=== PATIENT | male | born 1940 | race Caucasian/White ===

== ENCOUNTER → 2018-04-14 11:00 | Outpatient (CLI) | payer MEDICARE, OTHER, SELFPAY ==
--- NOTE | 2018-04-14 | DI.US.S_ITS ---
PROCEDURE: US SCROTUM INDICATIONS: TESTICULAR PAIN TECHNIQUE: Real-time scanning was performed of the scrotum and testicles, with image documentation. Color and pulse Doppler interrogation was performed of both testicles. COMPARISON: [facility], , TESTICLE IMAGING, 03/30/2016, 13:28. FINDINGS: Right: Testicle is normal in size at 3.5 x 2.4 x 2.6 cm, and homogenous in echotexture. Epididymis is normal in overall size and morphology. No hydrocele or varicoceles. Overlying scrotal skin is normal in thickness. On the inferior margin of the right testicle there is a heterogeneous cystic structure identified that measures approximately 1.7 x 1.4 x 1.3 cm which demonstrates low level internal echoes without vascularity. Left: Testicle is normal in size at 2.9 x 2.2 x 2.7 cm, and homogeneous in echotexture. Epididymis is normal in overall size and morphology. Incidental note is made of a dilated rete testes of the left testicle with small cystic foci evident. No hydrocele or varicoceles. Overlying scrotal skin is normal in thickness. Doppler: Color and pulse Doppler demonstrate normal and symmetric arterial flow in both testicles. Other: Targeted sonographic imaging of the left inguinal region demonstrates a small lymph node measuring up to 7 mm in short axis at the site of the patient's area of concern, which is of doubtful clinical significance. No obvious inguinal hernia is evident. IMPRESSION: 1. No testicular mass, evidence of testicular torsion, or epididymal orchitis. 2. Heterogeneous fluid collection on the inferior margin of the right scrotal sac may represent a partly loculated hydrocele versus epididymal cyst. Please correlate clinically to exclude superimposed infection. 3. The patient's area of concern correlates with a small benign appearing left inguinal lymph node. Dictated by: Dylan Marley M.D. on 04/14/2018 at 13:00 Approved by: Dylan Marley M.D. on 04/14/2018 at 13:04
== END ==
PROVIDERS: PCP Family Medicine; Visit Provider Urology
DX: N50.819 Testicular pain, unspecified (principal)
CPT/HCPCS: 76870

== ENCOUNTER 2018-11-01 16:14 | Emergency (ER) | payer MEDICARE, OTHER, SELFPAY ==
[2018-11-01 16:15] VITALS: BP 165/63; PULSE 82; RESP 18; TEMP 36.6; O2SAT 98
[2018-11-01 16:37] LABS: Add Manual Diff / Slide Review NO; Basophils Absolute Auto 100 /uL (0-100); Basophils Percent Auto 0.6 % (0-2); Eosinophils Absolute Auto 200 /uL (0-450); Eosinophils Percent Auto 1.7 % (2-4); Hematocrit 42.7 % (41-53); Hemoglobin 14.7 g/dL (13.5-17.5); Lymphocytes Absolute Auto 800 /uL (1100-4500); Lymphocytes Percent Auto 5.6 % (25-40); Mean Corpuscular HGB Conc 34.4 % (30-36); Mean Corpuscular Hemoglobin 32.5 PG (26-34); Mean Corpuscular Volume 94.3 fL (80-100); Monocytes Absolute Auto 700 /uL (0-900); Neutrophils Absolute Auto 11800 /uL (1500-7000); Neutrophils Percent Auto 87.1 % (50-75); Platelet Count 265 X10^3/uL (150-400); Red Blood Cell Count 4.53 X10^6/uL (4.5-5.9); Red Cell Distribution Width 14.1 % (11.6-14.8); White Blood Cell Count 13.5 X10^3/uL (4.5-11.0)
[2018-11-01] MEDS: ONDANSETRON 4 MG/2 ML INJ IV ×2 (16:40→19:16)
[2018-11-01 16:46] LABS: INR 1.1 (0.9-1.3); Prothrombin Time 12.8 SECONDS (10.1-12.7)
[2018-11-01 16:48] LABS: PTT Partial Thromboplastin Tim 29 SECONDS (26.4-36.2)
[2018-11-01 16:50] LABS: Alanine Aminotransferase 27 IU/L (21-72); Albumin 4.6 g/dL (3.5-5.0); Albumin Globulin Ratio 1.2 (1.0-2.8); Alkaline Phosphatase 61 U/L (38-126); Aspartate Aminotransferase 32 IU/L (17-59); BUN Creatinine Ratio 16.4 (6-22); Bilirubin Total 0.8 mg/dL (0.2-1.3); Blood Urea Nitrogen 18 mg/dL (9-20); Calcium 10.4 mg/dL (8.4-10.2); Carbon Dioxide 26 mmol/L (22-32); Chloride 102 mmol/L (98-107); Estimated Glomerular Filt Rate > 60.0 mL/min (>60); Globulin 3.8 g/dL (1.7-4.1); Glucose 124 mg/dL (80-110); Lipase 55 U/L (23-300); Potassium 4.6 mmol/L (3.4-5.1); Sodium 140 mmol/L (137-145); Total Protein 8.4 g/dL (6.3-8.2)
[2018-11-01 16:54] LABS: HEMOLYSIS 68 (0-50)
[2018-11-01 17:19] LABS: Bacteria Urine Occasional (0-1); Culture Indicated Urine Specimen Cultured; RBC Urine 5-10/HPF (0-5/HPF); Squamous Epithelial Cell Urine 0-1 /HPF (0-5/HPF); WBC Urine 5-10/HPF (0-5/HPF)
[2018-11-01 19:11] VITALS: BP 139/70; PULSE 72; RESP 18; TEMP 36.1; O2SAT 95
--- NOTE | 2018-11-01 20:37 | ED.ABDPAIN ---
HPI - Abdominal Pain General Chief Complaint: Abdominal Pain Stated Complaint: GUT PAIN Time Seen by Provider: 11/01/18 16:19 Source: patient Mode of arrival: ambulatory Limitations: no limitations History of Present Illness HPI narrative: Patient comes to the emergency department complaining of crampy abdominal pain that started today. He denies any diarrhea or constipation. No fevers. No chest pain or shortness of breath. No cough. No dysuria. No blood in his stools. No vomiting, but patient has been mildly nauseated. No other complaints at this time. Related Data Home Medications Medication Instructions Recorded Confirmed furosemide 20 mg PO DAILY #0 08/31/17 11/01/18 metoprolol succinate 100 mg PO QPM #0 08/31/17 11/01/18 Probiotic 1 cap PO BID 11/01/18 11/01/18 alprazolam 1 mg PO BEDTIME PRN 11/01/18 11/01/18 amlodipine 10 mg PO QAM 11/01/18 11/01/18 atorvastatin 20 mg PO QPM 11/01/18 11/01/18 fluticasone propionate 1 spray INTRANASAL DAILY 11/01/18 11/01/18 hydrocodone-acetaminophen 1 tab PO QAM 11/01/18 11/01/18 levofloxacin 750 mg PO [id number] 11/01/18 11/01/18 naloxone 1 spray INTRANASAL PRN PRN 11/01/18 11/01/18 sennosides-docusate sodium [Senna 1 tab PO BID 11/01/18 11/01/18 with Docusate Sodium] Previous Rx's Medication Instructions Recorded lidocaine [Lidoderm] 1 patch TOPICAL Q12H #1 box 12/02/16 ondansetron 4 mg PO Q6H PRN #14 tab 11/01/18 sulfamethoxazole-trimethoprim 1 tab PO Q12H #14 tab 11/01/18 [Bactrim DS] Allergies Allergy/AdvReac Type Severity Reaction Status Date / Time diphenhydramine AdvReac Intermediate tachycardia Unverified 08/18/17 11:56 [From BENADRYL] and heightened anxiety morphine [MORPHINE] AdvReac Intermediate confusion, Unverified 08/18/17 11:56 disorientation oxycodone [OXYCODONE] AdvReac Mild CAUSES Unverified 08/31/17 12:35 CONFUSION [id number] Allergy Unknown Uncoded 11/01/18 16:24 Review of Systems Constitutional Denies chills, Denies fever(s), Denies lethargy and Denies weakness Eyes Denies change in vision, Denies eye discharge, Denies irritation and Denies loss of vision ENT Ears, Nose, Mouth, and Throat: Denies change in voice, Denies neck pain and Denies sore throat Cardiovascular Denies chest pain, Denies irregular heart rhythm, Denies lightheadedness, Denies palpitations, Denies dyspnea, Denies dyspnea on exertion and Denies orthopnea Respiratory Denies cough, Denies dyspnea, Denies dyspnea on exertion and Denies wheezing Gastrointestinal Gastrointestinal: Reports abdominal pain, Denies change in bowel habits, Denies diarrhea, Denies nausea and Denies vomiting Genitourinary Denies hematuria, Denies flank pain, Denies urinary incontinence and Denies urinary urgency Musculoskeletal Denies neck pain Integumentary/Breasts Denies pruritus, Denies erythema, Denies rash and Denies wounds Neurologic Denies confusion, Denies loss of vision and Denies weakness Psychiatric Denies anxiety, Denies confusion, Denies depression, Denies homicidal ideation and Denies suicidal ideation Endocrine Denies palpitations Hematologic/Lymphatic Denies easy bruising Allergic/Immunologic Denies wheezing [facility] Medical History Hyperlipidemia (Acute) HTN (hypertension) (Acute) Surgical History No pertinent past surgical history (Acute) Social History Smoking Status: Former smoker Social History Smoking Status: Former smoker Exam Initial Vital Signs Initial Vital Signs: Vital Signs Temperature 97.9 F 11/01/18 16:15 Pulse Rate 82 11/01/18 16:15 Respiratory Rate 18 11/01/18 16:15 Blood Pressure 165/63 H 11/01/18 16:15 Pulse Oximetry 98 11/01/18 16:15 Const General: cooperative and well developed Nutritional Appearance: well nourished Orientation: alert, awake, oriented x3 and not confused HENMT Head: normocephalic and atraumatic Ears: external ears normal and TM's normal bilaterally Nose: external nose normal and No nasal discharge Face and sinus: sinuses nontender, face symmetric, no sinus tenderness and No dry mucous membranes Mouth: oral mucosae normal and moist mucous membranes Teeth and gingiva: dentition normal Throat: tonsils normal and uvula midline Eyes General: appearance normal, both eyes and all related structures Eyelids: eyelids normal Conjunctivae: conjunctivae normal Sclera: sclerae normal Pupils: PERRL EOM: EOM intact bilaterally Neck Neck: normal visual inspection, trachea midline, No lymphadenopathy, No midline deformity and No JVD Lymphatic: No lymphedema Chest Chest: normal inspection of the chest Resp Effort & Inspection: normal respiratory effort, able to speak in complete sentences, no respiratory distress and no use of accessory muscles Auscultation: clear to auscultation bilaterally, no rales, no rhonchi and no wheezes Cardio Rate: regular rate Rhythm: regular rhythm Heart Sounds: no click, no gallops, no murmurs and no rubs Pulses: normal peripheral pulses GI Inspection: non-distended Palpation: soft, no hepatosplenomegaly, No guarding, No pulsatile mass and No tender Auscultation: normal bowel sounds Back/Spine/Pelvis Back: No CVA tenderness Cervical Spine: cervical ROM normal and No pain with cervical ROM Thoracic/Lumbar Spine: thoracic and lumbar spine normal to inspection Skin General: no rashes or lesions noted, No jaundice and No petechiae Neuro General: alert, oriented x3, gait normal and no focal motor deficits Speech: speech normal Extrem General: full ROM, no clubbing, cyanosis or edema, no pedal edema and no calf tenderness Psych Appearance: well kempt Mental Status: mental status grossly normal Attitude: cooperative Thought Content: normal and suicidality Judgment: judgment good Course Course Narrative: Patient had a fairly benign abdominal exam. He was treated symptomatically, and worked up with labs, which were unremarkable, except for a mild leukocytosis. Urinalysis showed positive for urinary tract infection. Patient was started on antibiotics for this. No emergent condition was identified. We have discussed home management of symptoms, as well as the usual indications for return. Orders Ordered: Discontinued Medications Ondansetron HCl (Zofran) 4 mg IV NOW ONE Stop: 11/01/18 16:25 Last Admin: 11/01/18 16:40 Dose: 4 mg Ondansetron HCl (Zofran) 4 mg IV NOW ONE Stop: 11/01/18 19:15 Last Admin: 11/01/18 19:16 Dose: 4 mg Vital Signs - 8 hr 11/01/18 16:15 11/01/18 19:11 Temperature 97.9 F 97.0 F L Pulse Rate 82 72 Respiratory Rate 18 18 Blood Pressure 165/63 H Blood Pressure [Left Arm] 139/70 Pulse Oximetry 98 95 MDM - Abdominal Pain Medical Records Attestation: I reviewed the patient's medical records. Lab Data Attestation: I reviewed the patient's lab results. Result diagrams: 11/01/18 16:25 11/01/18 16:25 Lab Results 11/01/18 11/01/18 11/01/18 Range/Units 16:25 16:25 16:25 WBC 13.5 H (4.5-11.0) X10^3/uL RBC 4.53 (4.5-5.9) X10^6/uL Hgb 14.7 (13.5-17.5) g/dL Hct 42.7 (41-53) % MCV 94.3 (80-100) fL MCH 32.5 (26-34) PG MCHC 34.4 (30-36) % RDW 14.1 (11.6-14.8) % Plt Count 265 (150-400) X10^3/uL Neut % (Auto) 87.1 H (50-75) % Lymph % (Auto) 5.6 L (25-40) % Clare % (Auto) 5.0 (3-14) % Eos % (Auto) 1.7 L (2-4) % Baso % (Auto) 0.6 (0-2) % Neut # (Auto) 35054 H (4025-3249) /uL Lymph # (Auto) 800 L (4824-5559) /uL Clare # (Auto) 700 (0-900) /uL Eos # (Auto) 200 (0-450) /uL Baso # (Auto) 100 (0-100) /uL PT 12.8 H (10.1-12.7) SECONDS INR 1.1 (0.9-1.3) APTT 29 (26.4-36.2) SECONDS Sodium 140 (137-145) mmol/L Potassium 4.6 (3.4-5.1) mmol/L Chloride 102 (98-107) mmol/L Carbon Dioxide 26 (22-32) mmol/L BUN 18 (9-20) mg/dL Creatinine 1.10 (0.66-1.25) mg/dL Estimated GFR > 60.0 (>60) mL/min BUN/Creatinine Ratio 16.4 (6-22) Glucose 124 H (80-110) mg/dL Calcium 10.4 H (8.4-10.2) mg/dL Total Bilirubin 0.8 (0.2-1.3) mg/dL AST 32 (17-59) IU/L ALT 27 (21-72) IU/L Alkaline Phosphatase 61 (38-126) U/L Total Protein 8.4 H (6.3-8.2) g/dL Albumin 4.6 (3.5-5.0) g/dL Globulin 3.8 (1.7-4.1) g/dL Albumin/Globulin Ratio 1.2 (1.0-2.8) Lipase 55 (23-300) U/L Urine RBC (0-5/HPF) Urine WBC (0-5/HPF) Ur Squamous Epith Cells (0-5/HPF) Urine Bacteria (None) Ur Culture Indicated? 11/01/18 Range/Units 16:40 WBC (4.5-11.0) X10^3/uL RBC (4.5-5.9) X10^6/uL Hgb (13.5-17.5) g/dL Hct (41-53) % MCV (80-100) fL MCH (26-34) PG MCHC (30-36) % RDW (11.6-14.8) % Plt Count (150-400) X10^3/uL Neut % (Auto) (50-75) % Lymph % (Auto) (25-40) % Clare % (Auto) (3-14) % Eos % (Auto) (2-4) % Baso % (Auto) (0-2) % Neut # (Auto) (3984-5233) /uL Lymph # (Auto) (9645-2648) /uL Clare # (Auto) (0-900) /uL Eos # (Auto) (0-450) /uL Baso # (Auto) (0-100) /uL PT (10.1-12.7) SECONDS INR (0.9-1.3) APTT (26.4-36.2) SECONDS Sodium (137-145) mmol/L Potassium (3.4-5.1) mmol/L Chloride (98-107) mmol/L Carbon Dioxide (22-32) mmol/L BUN (9-20) mg/dL Creatinine (0.66-1.25) mg/dL Estimated GFR (>60) mL/min BUN/Creatinine Ratio (6-22) Glucose (80-110) mg/dL Calcium (8.4-10.2) mg/dL Total Bilirubin (0.2-1.3) mg/dL AST (17-59) IU/L ALT (21-72) IU/L Alkaline Phosphatase (38-126) U/L Total Protein (6.3-8.2) g/dL Albumin (3.5-5.0) g/dL Globulin (1.7-4.1) g/dL Albumin/Globulin Ratio (1.0-2.8) Lipase (23-300) U/L Urine RBC 5-10/hpf H (0-5/HPF) Urine WBC 5-10/hpf H (0-5/HPF) Ur Squamous Epith Cells 0-1 /hpf (0-5/HPF) Urine Bacteria Occasional (0-1) (None) Ur Culture Indicated? Specimen cultured Point of care testing: Urine Dip Bedside Urine Glucose Negative Bedside Urine Bilirubin - Negative Bedside Urine Ketone - Negative Urine Specific [place] 1.015 Bedside Urine Occult Blood +/- Bedside Urine pH 7.0 Bedside Urine Protein - Negative Bedside Urine Urobilinogen - Negative Bedside Urine Nitrite - Negative Bedside Urine Leukocytes +++ 500 Esterase Discharge Plan Departure Patient Disposition: Home Clinical Impression: Acute UTI Abdominal pain Qualifiers: Abdominal location: epigastric Qualified Code(s): R10.13 - Epigastric pain Discharge Date/Time: 11/01/18 19:23 Interventions: ED Discharge Assessment Last Done: 11/01/18 19:23 Instructions: DI for Urinary Tract Infection (UTI), DI for Abdominal Pain-Adult Activity Restrictions/Additional Instructions: Your labs look good. There is no evidence of a serious or emergent condition causing your pain. Please follow up with your primary doctor for further evaluation, should the pain continue. You may take Zofran at home, as needed for nausea. Your prescription has been sent electronically to [facility] [place]. Prescriptions: New ondansetron 4 mg tablet,disintegrating 4 mg PO Q6H PRN (Reason: nausea and vomiting) Qty: 14 RF: 0 sulfamethoxazole-trimethoprim [Bactrim DS] 800-160 mg tablet 1 tab PO Q12H Qty: 14 RF: 0 No Action lidocaine [Lidoderm] 1 EACH adhesive patch,medicated 1 patch Topical Q12H Qty: 1 RF: 0 metoprolol succinate 100 MG tablet extended release 24 hr 100 mg PO QPM Qty: 0 RF: 0 furosemide 20 MG tablet 20 mg PO DAILY Qty: 0 RF: 0 atorvastatin 20 mg tablet 20 mg PO QPM RF: 0 alprazolam 1 mg tablet 1 mg PO BEDTIME PRN (Reason: Insomnia) RF: 0 hydrocodone-acetaminophen 10-325 mg tablet 1 tab PO QAM RF: 0 fluticasone propionate 50 mcg/actuation spray,suspension 1 spray intranasal DAILY RF: 0 levofloxacin 750 mg tablet 750 mg PO [id number] RF: 0 sennosides-docusate sodium [Senna with Docusate Sodium] 8.6-50 mg Tablet 1 tab PO BID RF: 0 amlodipine 10 mg tablet 10 mg PO QAM RF: 0 naloxone 4 mg/actuation [place],Non-Aerosol 1 spray intranasal PRN PRN (Reason: decreased responsiveness) RF: 0 Probiotic 1 cap PO BID RF: 0 Referrals: Tirso Salas DO [Primary Care Provider] -
--- NOTE | 2018-11-08 21:05 | ED_ITS ---
HPI - Abdominal Pain General Chief Complaint: Abdominal Pain Stated Complaint: GUT PAIN Time Seen by Provider: 11/01/18 16:19 Source: patient Mode of arrival: ambulatory Limitations: no limitations History of Present Illness HPI narrative: Patient comes to the emergency department complaining of crampy abdominal pain that started today. He denies any diarrhea or constipation. No fevers. No chest pain or shortness of breath. No cough. No dysuria. No blood in his stools. No vomiting, but patient has been mildly nauseated. No other complaints at this time. Related Data Home Medications Medication Instructions Recorded Confirmed furosemide 20 mg PO DAILY #0 08/31/17 11/01/18 metoprolol succinate 100 mg PO QPM #0 08/31/17 11/01/18 Probiotic 1 cap PO BID 11/01/18 11/01/18 alprazolam 1 mg PO BEDTIME PRN 11/01/18 11/01/18 amlodipine 10 mg PO QAM 11/01/18 11/01/18 atorvastatin 20 mg PO QPM 11/01/18 11/01/18 fluticasone propionate 1 spray INTRANASAL DAILY 11/01/18 11/01/18 hydrocodone-acetaminophen 1 tab PO QAM 11/01/18 11/01/18 levofloxacin 750 mg PO [id number] 11/01/18 11/01/18 naloxone 1 spray INTRANASAL PRN PRN 11/01/18 11/01/18 sennosides-docusate sodium [Senna 1 tab PO BID 11/01/18 11/01/18 with Docusate Sodium] Previous Rx's Medication Instructions Recorded lidocaine [Lidoderm] 1 patch TOPICAL Q12H #1 box 12/02/16 ondansetron 4 mg PO Q6H PRN #14 tab 11/01/18 sulfamethoxazole-trimethoprim 1 tab PO Q12H #14 tab 11/01/18 [Bactrim DS] Allergies Allergy/AdvReac Type Severity Reaction Status Date / Time diphenhydramine AdvReac Intermediate tachycardia Unverified 08/18/17 11:56 [From BENADRYL] and heightened anxiety morphine [MORPHINE] AdvReac Intermediate confusion, Unverified 08/18/17 11:56 disorientation oxycodone [OXYCODONE] AdvReac Mild CAUSES Unverified 08/31/17 12:35 CONFUSION [id number] Allergy Unknown Uncoded 11/01/18 16:24 Review of Systems Constitutional Denies chills, Denies fever(s), Denies lethargy and Denies weakness Eyes Denies change in vision, Denies eye discharge, Denies irritation and Denies loss of vision ENT Ears, Nose, Mouth, and Throat: Denies change in voice, Denies neck pain and Denies sore throat Cardiovascular Denies chest pain, Denies irregular heart rhythm, Denies lightheadedness, Denies palpitations, Denies dyspnea, Denies dyspnea on exertion and Denies orthopnea Respiratory Denies cough, Denies dyspnea, Denies dyspnea on exertion and Denies wheezing Gastrointestinal Gastrointestinal: Reports abdominal pain, Denies change in bowel habits, Denies diarrhea, Denies nausea and Denies vomiting Genitourinary Denies hematuria, Denies flank pain, Denies urinary incontinence and Denies urinary urgency Musculoskeletal Denies neck pain Integumentary/Breasts Denies pruritus, Denies erythema, Denies rash and Denies wounds Neurologic Denies confusion, Denies loss of vision and Denies weakness Psychiatric Denies anxiety, Denies confusion, Denies depression, Denies homicidal ideation and Denies suicidal ideation Endocrine Denies palpitations Hematologic/Lymphatic Denies easy bruising Allergic/Immunologic Denies wheezing FOR[facility]LY [facility] Medical History Hyperlipidemia (Acute) HTN (hypertension) (Acute) Surgical History No pertinent past surgical history (Acute) Social History Smoking Status: Former smoker Social History Smoking Status: Former smoker Exam Initial Vital Signs Initial Vital Signs: Vital Signs Temperature 97.9 F 11/01/18 16:15 Pulse Rate 82 11/01/18 16:15 Respiratory Rate 18 11/01/18 16:15 Blood Pressure 165/63 H 11/01/18 16:15 Pulse Oximetry 98 11/01/18 16:15 Const General: cooperative and well developed Nutritional Appearance: well nourished Orientation: alert, awake, oriented x3 and not confused HENMT Head: normocephalic and atraumatic Ears: external ears normal and TM's normal bilaterally Nose: external nose normal and No nasal discharge Face and sinus: sinuses nontender, face symmetric, no sinus tenderness and No dry mucous membranes Mouth: oral mucosae normal and moist mucous membranes Teeth and gingiva: dentition normal Throat: tonsils normal and uvula midline Eyes General: appearance normal, both eyes and all related structures Eyelids: eyelids normal Conjunctivae: conjunctivae normal Sclera: sclerae normal Pupils: PERRL EOM: EOM intact bilaterally Neck Neck: normal visual inspection, trachea midline, No lymphadenopathy, No midline deformity and No JVD Lymphatic: No lymphedema Chest Chest: normal inspection of the chest Resp Effort & Inspection: normal respiratory effort, able to speak in complete sentences, no respiratory distress and no use of accessory muscles Auscultation: clear to auscultation bilaterally, no rales, no rhonchi and no wheezes Cardio Rate: regular rate Rhythm: regular rhythm Heart Sounds: no click, no gallops, no murmurs and no rubs Pulses: normal peripheral pulses GI Inspection: non-distended Palpation: soft, no hepatosplenomegaly, No guarding, No pulsatile mass and No tender Auscultation: normal bowel sounds Back/Spine/Pelvis Back: No CVA tenderness Cervical Spine: cervical ROM normal and No pain with cervical ROM Thoracic/Lumbar Spine: thoracic and lumbar spine normal to inspection Skin General: no rashes or lesions noted, No jaundice and No petechiae Neuro General: alert, oriented x3, gait normal and no focal motor deficits Speech: speech normal Extrem General: full ROM, no clubbing, cyanosis or edema, no pedal edema and no calf tenderness Psych Appearance: well kempt Mental Status: mental status grossly normal Attitude: cooperative Thought Content: normal and suicidality Judgment: judgment good Course Course Narrative: Patient had a fairly benign abdominal exam. He was treated symptomatically, and worked up with labs, which were unremarkable, except for a mild leukocytosis. Urinalysis showed positive for urinary tract infection. Patient was started on antibiotics for this. No emergent condition was shawn ntified. We have discussed home management of symptoms, as well as the usual indications for return. Orders Ordered: Discontinued Medications Ondansetron HCl (Zofran) 4 mg IV NOW ONE Stop: 11/01/18 16:25 Last Admin: 11/01/18 16:40 Dose: 4 mg Ondansetron HCl (Zofran) 4 mg IV NOW ONE Stop: 11/01/18 19:15 Last Admin: 11/01/18 19:16 Dose: 4 mg Vital Signs - 8 hr 11/01/18 16:15 11/01/18 19:11 Temperature 97.9 F 97.0 F L Pulse Rate 82 72 Respiratory Rate 18 18 Blood Pressure 165/63 H Blood Pressure [Left Arm] 139/70 Pulse Oximetry 98 95 MDM - Abdominal Pain Medical Records Attestation: I reviewed the patient's medical records. Lab Data Attestation: I reviewed the patient's lab results. Result diagrams: 11/01/18 16:25 11/01/18 16:25 Lab Results 11/01/18 11/01/18 11/01/18 Range/Units 16:25 16:25 16:25 WBC 13.5 H (4.5-11.0) X10^3/uL RBC 4.53 (4.5-5.9) X10^6/uL Hgb 14.7 (13.5-17.5) g/dL Hct 42.7 (41-53) % MCV 94.3 (80-100) fL MCH 32.5 (26-34) PG MCHC 34.4 (30-36) % RDW 14.1 (11.6-14.8) % Plt Count 265 (150-400) X10^3/uL Neut % (Auto) 87.1 H (50-75) % Lymph % (Auto) 5.6 L (25-40) % [place] % (Auto) 5.0 (3-14) % Eos % (Auto) 1.7 L (2-4) % Baso % (Auto) 0.6 (0-2) % Neut # (Auto) 73921 H (0316-0644) /uL Lymph # (Auto) 800 L (6526-8796) /uL [place] # (Auto) 700 (0-900) /uL Eos # (Auto) 200 (0-450) /uL Baso # (Auto) 100 (0-100) /uL PT 12.8 H (10.1-12.7) SECONDS INR 1.1 (0.9-1.3) APTT 29 (26.4-36.2) SECONDS Sodium 140 (137-145) mmol/L Potassium 4.6 (3.4-5.1) mmol/L Chloride 102 (98-107) mmol/L Carbon Dioxide 26 (22-32) mmol/L BUN 18 (9-20) mg/dL Creatinine 1.10 (0.66-1.25) mg/dL Estimated GFR > 60.0 (>60) mL/min BUN/Creatinine Ratio 16.4 (6-22) Glucose 124 H (80-110) mg/dL Calcium 10.4 H (8.4-10.2) mg/dL Total Bilirubin 0.8 (0.2-1.3) mg/dL AST 32 (17-59) IU/L ALT 27 (21-72) IU/L Alkaline Phosphatase 61 (38-126) U/L Total Protein 8.4 H (6.3-8.2) g/dL Albumin 4.6 (3.5-5.0) g/dL Globulin 3.8 (1.7-4.1) g/dL Albumin/Globulin Ratio 1.2 (1.0-2.8) Lipase 55 (23-300) U/L Urine RBC (0-5/HPF) Urine WBC (0-5/HPF) Ur Squamous Epith Cells (0-5/HPF) Urine Bacteria (None) Ur Culture Indicated? 11/01/18 Range/Units 16:40 WBC (4.5-11.0) X10^3/uL RBC (4.5-5.9) X10^6/uL Hgb (13.5-17.5) g/dL Hct (41-53) % MCV (80-100) fL MCH (26-34) PG MCHC (30-36) % RDW (11.6-14.8) % Plt Count (150-400) X10^3/uL Neut % (Auto) (50-75) % Lymph % (Auto) (25-40) % [place] % (Auto) (3-14) % Eos % (Auto) (2-4) % Baso % (Auto) (0-2) % Neut # (Auto) (9741-4894) /uL Lymph # (Auto) (8956-4843) /uL [place] # (Auto) (0-900) /uL Eos # (Auto) (0-450) /uL Baso # (Auto) (0-100) /uL PT (10.1-12.7) SECONDS INR (0.9-1.3) APTT (26.4-36.2) SECONDS Sodium (137-145) mmol/L Potassium (3.4-5.1) mmol/L Chloride (98-107) mmol/L Carbon Dioxide (22-32) mmol/L BUN (9-20) mg/dL Creatinine (0.66-1.25) mg/dL Estimated GFR (>60) mL/min BUN/Creatinine Ratio (6-22) Glucose (80-110) mg/dL Calcium (8.4-10.2) mg/dL Total Bilirubin (0.2-1.3) mg/dL AST (17-59) IU/L ALT (21-72) IU/L Alkaline Phosphatase (38-126) U/L Total Protein (6.3-8.2) g/dL Albumin (3.5-5.0) g/dL Globulin (1.7-4.1) g/dL Albumin/Globulin Ratio (1.0-2.8) Lipase (23-300) U/L Urine RBC 5-10/hpf H (0-5/HPF) Urine WBC 5-10/hpf H (0-5/HPF) Ur Squamous Epith Cells 0-1 /hpf (0-5/HPF) Urine Bacteria Occasional (0-1) (None) Ur Culture Indicated? Specimen cultured Point of care testing: Urine Dip Bedside Urine Glucose Negative Bedside Urine Bilirubin - Negative Bedside Urine Ketone - Negative Urine Specific [place] 1.015 Bedside Urine Occult Blood +/- Bedside Urine pH 7.0 Bedside Urine Protein - Negative Bedside Urine Urobilinogen - Negative Bedside Urine Nitrite - Negative Bedside Urine Leukocytes +++ 500 Esterase Discharge Plan Departure Patient Disposition: Home Clinical Impression: Acute UTI Abdominal pain Qualifiers: Abdominal location: epigastric Qualified Code(s): R10.13 - Epigastric pain Discharge Date/Time: 11/01/18 19:23 Interventions: ED Discharge Assessment Last Done: 11/01/18 19:23 Instructions: DI for Urinary Tract Infection (UTI), DI for Abdominal Pain-Adult Activity Restrictions/Additional Instructions: Your labs look good. There is no evidence of a serious or emergent condition causing your pain. Please follow up with your primary doctor for further evaluation, should the pain continue. You may take Zofran at home, as needed for nausea. Your prescription has been sent electronically to safely in [place]. Prescriptions: New ondansetron 4 mg tablet,disintegrating 4 mg PO Q6H PRN (Reason: nausea and vomiting) Qty: 14 RF: 0 sulfamethoxazole-trimethoprim [Bactrim DS] 800-160 mg tablet 1 tab PO Q12H Qty: 14 RF: 0 No Action lidocaine [Lidoderm] 1 EACH adhesive patch,medicated 1 patch Topical Q12H Qty: 1 RF: 0 metoprolol succinate 100 MG tablet extended release 24 hr 100 mg PO QPM Qty: 0 RF: 0 furosemide 20 MG tablet 20 mg PO DAILY Qty: 0 RF: 0 atorvastatin 20 mg tablet 20 mg PO QPM RF: 0 alprazolam 1 mg tablet 1 mg PO BEDTIME PRN (Reason: Insomnia) RF: 0 hydrocodone-acetaminophen 10-325 mg tablet 1 tab PO QAM RF: 0 fluticasone propionate 50 mcg/actuation spray,suspension 1 spray intranasal DAILY RF: 0 levofloxacin 750 mg tablet 750 mg PO [id number] RF: 0 sennosides-docusate sodium [Senna with Docusate Sodium] 8.6-50 mg Tablet 1 tab PO BID RF: 0 amlodipine 10 mg tablet 10 mg PO QAM RF: 0 naloxone 4 mg/actuation [place],Non-Aerosol 1 spray intranasal PRN PRN (Reason: decreased responsiveness) RF: 0 Probiotic 1 cap PO BID RF: 0 Referrals: Tirso Salas DO [Primary Care Provider] -
== END 2018-11-01 19:23 | disposition home or self-care (01) ==
PROVIDERS: Emergency Provider Emergency Medicine; PCP Family Medicine
DX: N39.0 Urinary tract infection, site not specified (principal); R10.13 Epigastric pain
CPT/HCPCS: 80053; 81003; 81015; 83690; 85025; 85610; 85730; 87077; 87086; 87186; 93005; 93010; 96374; 96376; 99282; 99284; J2405

== ENCOUNTER → 2018-11-14 12:20 | Outpatient (CLI) | payer MEDICARE, OTHER, SELFPAY ==
--- NOTE | 2018-11-14 | DI.US.S_ITS ---
PROCEDURE: US RENAL COMPLETE INDICATIONS: HYDRONEPHROSIS TECHNIQUE: Real-time scanning was performed of the kidneys and bladder, with image documentation. COMPARISON: [facility], US, ABDOMEN LIMITED, 05/27/2016, 14:35. [facility], CT, ABDOMEN/PELVIS WITHOUT CONTRAS, 06/01/2016, 19:27. FINDINGS: Kidneys: Kidneys are normal in size. Right kidney measures 10.8 cm long; left kidney measures 10.1 cm long. Right renal cortical thickness is 1.1 cm; left renal cortical thickness is 1.4 cm. Renal cortical echotexture is normal. No hydronephrosis or nephrolithiasis. No suspicious solid mass lesions. Multiple renal cysts are seen, the majority of which are simple. There is a complex cyst seen within the mid right kidney that measures up to 2.5 cm. Bladder: Removed. Miscellaneous: No free pelvic fluid. IMPRESSION: No hydronephrosis is seen. A mildly complex cyst is seen within the right mid kidney that measures up to 2.5 cm. Prior cystectomy. Dictated by: Christopher Cordon M.D. on 11/14/2018 at 17:21 Approved by: Christopher Cordon M.D. on 11/14/2018 at 17:24
== END ==
PROVIDERS: PCP Family Medicine; Visit Provider Family Medicine
DX: N28.1 Cyst of kidney, acquired (principal)
CPT/HCPCS: 76770

== ENCOUNTER 2019-01-24 11:23 | Emergency (ER) | payer MEDICARE, OTHER, SELFPAY ==
[2019-01-24] VITALS (7 sets, daily range): BP systolic 136–169; BP diastolic 60–83; PULSE 58–90; RESP 16–18; TEMP 36.1; O2SAT 97–100; BMI 23.0
--- NOTE | 2019-01-24 13:02 | PC.NURSE ---
Patient reports ongoing chronic left testicle, groin, leg pain for several years with multiple CT scans, ultrasounds, and specialist consults. Patient had an MRI of his back scheduled for today to determine if it was nerve pain originating in his low back since patient has history of back pain with surgery and has been slowly having a harder time walking. he cancelled the MRI and came here today because pain was too much. Patient also has a urostomy and they wonder if pain is from that, states stoma is redder than normal.
--- NOTE | 2019-01-24 13:36 | DI.US.S_ITS ---
PROCEDURE: US SCROTUM INDICATIONS: TESTICLE PAIN TECHNIQUE: Real-time scanning was performed of the scrotum and testicles, with image documentation. Color and pulse Doppler interrogation was performed of both testicles. COMPARISON: [facility], , US SCROTUM, 04/14/2018, 11:49. [facility], , TESTICLE IMAGING, 03/30/2016, 13:28. FINDINGS: Right: Testicle is normal in size at 4.1 x 2.3 x 2.1 cm, and homogenous in echotexture. Epididymis is normal in overall size and morphology. A moderate-sized right-sided hydrocele with internal low-level echoes is similar to the prior examination and may contain a single septation. There appears to be a small varicocele. Overlying scrotal skin is normal in thickness. Left: Testicle is normal in size at 3.6 x 2.6 x 1.8 cm, and homogeneous in echotexture. Epididymis is normal in overall size and morphology. No hydrocele or varicoceles. Overlying scrotal skin is normal in thickness. There is mild prominence of the rete testes. A few scattered microcalcifications within the left testicle is present without findings consistent with microlithiasis. Doppler: Color and pulse Doppler demonstrate normal and symmetric arterial flow in both testicles. Other: Sonographic imaging was also performed at the site of the patient's area of concern, which is noted to be located within the left groin region. Within this region, there are small lymph nodes identified measuring up to 8 mm in short axis. IMPRESSION: 1. No evidence of testicular torsion, testicular mass, or epididymal orchitis. 2. A small lymph node is evident at the site of the patient's area of concern within the left groin. 3. Complex right-sided hydrocele is similar to the prior examination and of doubtful clinical significance. The possibility of superimposed infection should be excluded clinically. Dictated by: Dylan Marley M.D. on 01/24/2019 at 13:53 Approved by: Dylan Marley M.D. on 01/24/2019 at 13:57
[2019-01-24] MEDS: ONDANSETRON 4 MG/2 ML INJ IV (14:42)
[2019-01-24] MEDS: SODIUM CHLORIDE 0.9% 1,000 ML 1000 ML IV (14:44)
[2019-01-24 14:45] LABS: Add Manual Diff / Slide Review NO; Basophils Absolute Auto 0 /uL (0-100); Basophils Percent Auto 0.4 % (0-2); Eosinophils Absolute Auto 100 /uL (0-450); Eosinophils Percent Auto 1.3 % (2-4); Hematocrit 46.4 % (41-53); Hemoglobin 16.2 g/dL (13.5-17.5); Lymphocytes Absolute Auto 900 /uL (1100-4500); Lymphocytes Percent Auto 11.5 % (25-40); Mean Corpuscular HGB Conc 34.9 % (30-36); Mean Corpuscular Hemoglobin 32.4 PG (26-34); Mean Corpuscular Volume 92.8 fL (80-100); Monocytes Absolute Auto 800 /uL (0-900); Monocytes Percent Auto 9.8 % (3-14); Neutrophils Absolute Auto 6300 /uL (1500-7000); Platelet Count 153 X10^3/uL (150-400); Red Blood Cell Count 5.01 X10^6/uL (4.5-5.9); Red Cell Distribution Width 14.2 % (11.6-14.8); White Blood Cell Count 8.2 X10^3/uL (4.5-11.0)
[2019-01-24 14:54] LABS: Alanine Aminotransferase 25 IU/L (21-72); Albumin 4.8 g/dL (3.5-5.0); Albumin Globulin Ratio 1.3 (1.0-2.8); Alkaline Phosphatase 65 U/L (38-126); Amylase 121 U/L (30-110); Aspartate Aminotransferase 36 IU/L (17-59); BUN Creatinine Ratio 22.7 (6-22); Bilirubin Total 0.6 mg/dL (0.2-1.3); Blood Urea Nitrogen 34 mg/dL (9-20); Calcium 10.4 mg/dL (8.4-10.2); Carbon Dioxide 27 mmol/L (22-32); Chloride 93 mmol/L (98-107); Estimated Glomerular Filt Rate 45.1 mL/min (>60); Globulin 3.6 g/dL (1.7-4.1); Glucose 106 mg/dL (80-110); HEMOLYSIS < 15 (0-50); Lipase 222 U/L (23-300); Potassium 3.8 mmol/L (3.4-5.1); Sodium 133 mmol/L (137-145); Total Protein 8.4 g/dL (6.3-8.2)
[2019-01-24 15:12] LABS: Bacteria Urine None Seen; RBC Urine None Seen (0-5/HPF)
[2019-01-24 15:16] LABS: Appearance Urine UA CLEAR; Bilirubin Urine UA NEGATIVE (NEGATIVE); Color Urine UA YELLOW; Glucose Urine UA NEGATIVE (Negative); Ketones Urine UA NEGATIVE (NEGATIVE); Leukocyte Esterase Urine UA TRACE (NEGATIVE); Nitrite Urine UA NEGATIVE (Negative); Occult Blood Urine UA TRACE-INTACT (Negative); Protein Urine UA NEGATIVE (Negative); Specific Gravity Urine UA <=1.005 (1.000-1.035); Urobilinogen Urine UA 0.2 E.U./dL (0.2)
[2019-01-24 15:17] LABS: Procalcitonin < 0.05 ng/mL (<0.5)
[2019-01-24 15:23] LABS: Culture Indicated Urine Cult Not Indicated; WBC Urine 0-1/HPF (0-5/HPF)
--- NOTE | 2019-01-24 16:15 | DI.CT.S_ITS ---
PROCEDURE: CT ABDOMEN PELVIS W CON INDICATIONS: abd pain TECHNIQUE: After the administration of oral and intravenous contrast, 5 mm thick sections acquired from the diaphragms to the symphysis. 5 mm thick coronal and sagittal reformats were performed. For radiation dose reduction, the following was used: automated exposure control, adjustment of mA and/or kV according to patient size. COMPARISON: [facility], CT, ABDOMEN/PELVIS WITHOUT CONTRAS, 06/01/2016, 19:27. FINDINGS: Image quality: Diagnostic. ABDOMEN: Lung bases: Minimal scar versus atelectasis appears to be present within the posterior right costophrenic angle. There may be areas of centrilobular emphysema within the lung bases. Heart size is normal. Solid organs: The liver is noted be slightly hypodense when compared to the spleen. No definite liver lesions are appreciated. Small gallstones are present within the dependent aspect of the gallbladder. There is no intrahepatic or extrahepatic biliary dilatation. The adrenals, pancreas, and spleen are within normal limits. Both kidneys are normal in size and appear to contain bilateral renal cysts. There is no definite hydronephrosis. An extrarenal pelvis on the right appears to be present. Mild prominence of both ureters is present. A diverting right lower quadrant ureteroileostomy is identified with slight dilatation of this structure, which is similar to the previous exam. Peritoneum and bowel: Stomach is unremarkable. The small bowel loops are nondilated. Moderate residual stool is identified throughout the colon, which is more pronounced within the proximal colon. The appendix is well-visualized and normal. Extensive colonic diverticulosis is evident without surrounding inflammation to suggest diverticulitis. No free fluid, loculated fluid collection or free air is evident. Postoperative changes at the rectosigmoid junction are present without an adjacent fluid collection. Nodes and vessels: No retroperitoneal or mesenteric adenopathy. Aorta and inferior vena cava are normal in caliber. Bones: Post surgical changes of the lumbosacral spine are evident related to an L4-S1 lumbar fusion. Moderate multilevel degenerative changes of the lumbar spine are present. No acute fracture or suspicious osseous lesion is evident. PELVIS: Genitourinary: The prostate and the urinary bladder have been surgically removed. Miscellaneous: No inguinal hernias or adenopathy. No free fluid or loculated fluid collection is appreciated. Bones: No suspicious bony lesions. No acute pelvic fractures are identified. IMPRESSION: 1. No acute abnormality within the abdomen or pelvis. 2. 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 Mild hydroureter is similar to the previous exam. There is no definitive hydronephrosis. 3. Colonic diverticulosis without diverticulitis. 4. Possible constipation. No bowel obstruction. 5. Cholelithiasis. 6. Questionable mild hepatic steatosis. Dictated by: Dylan Marley M.D. on 01/24/2019 at 15:48 Approved by: Dylan Marley M.D. on 01/24/2019 at 15:54
[2019-01-24] MEDS: HYDROCODONE/ACET 5/325 TABLET 1 TAB PO (16:40)
[2019-01-24] MEDS: LIDOCAINE PATCH 1 EACH ADH..PATCH TOP (16:41)
--- NOTE | 2019-01-24 17:00 | PC.NURSE ---
Patient requests to stay in the hospital over night, he reports I don't want to go home, I'm kind of a hospital addict. Dr. Ochoa aware.
--- NOTE | 2019-01-24 20:09 | ED_ITS ---
HPI - Male Genitourinary <Vivian Mckeon, THERMIT WELDING MACHINE OPERATOR-BC - Last Filed: 01/24/19 20:18> General Chief complaint: Urogenital-Male Stated complaint: Testicular pain/rt sided pain/nausea Time Seen by Provider: 01/24/19 12:54 Source: patient and family Mode of arrival: wheelchair Limitations: no limitations History of Present Illness HPI Narrative: The patient is a 78-year-old male nonsmoker who presents with his for chief complaint of left-sided pain radiating from his left abdomen down left testicle and left leg. He states that his pain is so bad he has had hard time walking. The patient admits to a long medical history including chronic pain for which he sees a pain management physician. He states that this left- sided pain started back in 2010, any is had multiple CTs ultrasounds imaging lab work etc for this. He does have a complicated medical history including pyelonephritis, pancreatitis, diverticulitis. He states he saw his PCP a days ago and was diagnosed with diverticulitis and he was started on 2 different antibiotics. He denies any fevers nausea vomiting. 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 He states that he has been getting worse over the past several days, then states he has been getting worse over the past several months. He states that he would like to stay in the emergency department. The patient states that he was supposed to get a back MRI today but came to the emergency department instead. Related Data Home Medications Medication Instructions Recorded Confirmed metoprolol succinate 100 mg PO QPM #0 08/31/17 01/24/19 alprazolam 1 mg PO BEDTIME PRN 11/01/18 01/24/19 atorvastatin 20 mg PO QPM 11/01/18 01/24/19 fluticasone propionate 1 spray INTRANASAL DAILY 11/01/18 01/24/19 hydrocodone-acetaminophen 1 tab PO QAM 11/01/18 01/24/19 naloxone 1 spray INTRANASAL PRN PRN 11/01/18 01/24/19 sennosides-docusate sodium [Senna 1 tab PO BID 11/01/18 01/24/19 with Docusate Sodium] hydrochlorothiazide 25 mg PO DAILY 01/24/19 01/24/19 primidone 50 mg PO DAILY 09/17/19 09/17/19 Previous Rx's Medication Instructions Recorded ondansetron 4 mg PO Q6H PRN #14 tab 11/01/18 Allergies Allergy/AdvReac Type Severity Reaction Status Date / Time hydroxyzine Allergy Unknown Verified 01/24/19 13:38 diphenhydramine AdvReac Intermediate tachycardia Verified 01/24/19 11:32 [From BENADRYL] and heightened anxiety morphine [MORPHINE] AdvReac Intermediate confusion, Verified 01/24/19 11:32 disorientation oxycodone [OXYCODONE] AdvReac Mild CAUSES Verified 01/24/19 11:32 CONFUSION Review of Systems <[facility] - Last Filed: 01/24/19 20:18> Review of Systems Narrative: GENERAL: Denies chills, fatigue, malaise, fever, sweats. HEENT: Denies sinus pain, ear pain, sore throat, difficulty swallowing, dizziness. RESPIRATORY: Denies dyspnea, cough, wheezing, hemoptysis, sputum. CARDIOVASCULAR: Denies chest pain, palpitations, orthopnea, edema, GASTROINTESTINAL: See HPI : See HPI MUSCULOSKELETAL: denies weakness, joint pain, or bony pain SKIN: Denies rash, skin lesions, or other NEUROLOGIC: Denies weakness, headache, numbness, change in speech, confusion, seizures, incoordination. PSYCHIATRIC: No concerning psychosocial issues. 12 point review of systems is negative except for those stated above PFSH <[facility] - Last Filed: 01/24/19 20:18> Social History Smoking Status: Former smoker Exam <[facility] - Last Filed: 01/24/19 20:18> Narrative Exam Narrative: GENERAL: Chronically ill male in no acute distress lying on stretcher HEAD: Atraumatic. Normocephalic. No temporal or scalp tenderness. EYES: Pupils equal round and reactive. Extraocular motions intact. No scleral icterus. No injection or drainage. ENT: Nose without bleeding, purulent drainage or septal hematoma. Throat without erythema, tonsillar hypertrophy or exudate. Uvula midline. Airway patent. NECK: Trachea midline. No JVD or lymphadenopathy. Supple, nontender, no meningeal signs. CARDIOVASCULAR: Regular rate and rhythm without murmurs, gallops, or rubs. RESPIRATORY: Clear to auscultation. Breath sounds equal bilaterally. No wheezes, rales, or rhonchi. No cough. No increased respiratory effort. No accessory muscle use. GI: Urostomy in place urostomy as no extending erythema. Active bowel sounds all 4 quadrants. Pain to left lower quadrant palpation with guarding noted. No pain to right upper quadrant. EXTREMITIES: No clubbing, cyanosis, or edema. No joint tenderness, effusion, or edema noted. BACK: Nontender without deformity or crepitance. No flank tenderness. NEURO: AOx3. SKIN: No rash or erythema. Initial Vital Signs Initial Vital Signs: Vital Signs Temperature 97.0 F L 01/24/19 11:32 Pulse Rate 61 01/24/19 11:32 Respiratory Rate 18 01/24/19 11:32 Blood Pressure 169/71 H 01/24/19 11:32 Pulse Oximetry 98 01/24/19 11:32 <Vivian Ochoa DO - Last Filed: 02/05/19 03:12> Initial Vital Signs Initial Vital Signs: Vital Signs Temperature 97.0 F L 01/24/19 11:32 Pulse Rate 61 01/24/19 11:32 Respiratory Rate 18 01/24/19 11:32 Blood Pressure 169/71 H 01/24/19 11:32 Pulse Oximetry 98 01/24/19 11:32 Course <BRANDON Bueno-BC - Last Filed: 01/24/19 20:18> Orders Ordered: Discontinued Medications Hydrocodone Bitart/Acetaminophen ([place] 5/325) 1 tab PO NOW ONE Stop: 01/24/19 16:19 Last Admin: 01/24/19 16:40 Dose: 1 tab Documented by: HALIMA Hydrocodone Bitart/Acetaminophen ([place] 5/325) 1 tab PO NOW ONE Stop: 01/24/19 16:23 Last Admin: 01/24/19 16:30 Dose: Not Given Documented by: HALIMA Sodium Chloride (Normal Saline 0.9%) 1,000 mls @ 1,000 mls/hr IV BOLUS ONE Stop: 01/24/19 14:34 Last Infusion: 01/24/19 16:00 Dose: 0 mls/hr Documented by: Admin: 01/24/19 14:44 Dose: 1,000 mls/hr Documented by: HALIMA Lidocaine (Lidoderm) 1 each TOP NOW ONE Stop: 01/24/19 16:23 Last Admin: 01/24/19 16:41 Dose: 1 each Documented by: HALIMA Ondansetron HCl (Zofran) 4 mg IV NOW ONE Stop: 01/24/19 13:36 Last Admin: 01/24/19 14:42 Dose: 4 mg Documented by: HALIMA Vital Signs Vital signs: Vital Signs - 8 hr 01/24/19 13:01 01/24/19 14:30 01/24/19 15:30 Pulse Rate 58 L 68 71 Respiratory Rate 16 16 17 Blood Pressure Blood Pressure [Left Arm] 158/64 H 146/68 H 136/60 Pulse Oximetry 100 99 100 01/24/19 16:57 01/24/19 17:58 01/24/19 18:39 Pulse Rate 90 80 78 Respiratory Rate 17 17 16 Blood Pressure 150/72 H Blood Pressure [Left Arm] 156/83 H 148/68 H Pulse Oximetry 100 98 97 <Vivian Ochoa, - Last Filed: 02/05/19 03:12> Orders Ordered: Discontinued Medications Hydrocodone Bitart/Acetaminophen ([place] 5/325) 1 tab PO NOW ONE Stop: 01/24/19 16:19 Last Admin: 01/24/19 16:40 Dose: 1 tab Documented by: HALIMA Hydrocodone Bitart/Acetaminophen ([place] 5/325) 1 tab PO NOW ONE Stop: 01/24/19 16:23 Last Admin: 01/24/19 16:30 Dose: Not Given Documented by: HALIMA Sodium Chloride (Normal Saline 0.9%) 1,000 mls @ 1,000 mls/hr IV BOLUS ONE Stop: 01/24/19 14:34 Last Infusion: 01/24/19 16:00 Dose: 0 mls/hr Documented by: Admin: 01/24/19 14:44 Dose: 1,000 mls/hr Documented by: HALIMA Lidocaine (Lidoderm) 1 each TOP NOW ONE Stop: 01/24/19 16:23 Last Admin: 01/24/19 16:41 Dose: 1 each Documented by: HALIMA Ondansetron HCl (Zofran) 4 mg IV NOW ONE Stop: 01/24/19 13:36 Last Admin: 01/24/19 14:42 Dose: 4 mg Documented by: HALIMA Vital Signs Vital signs: Vital Signs - 8 hr 01/24/19 13:01 01/24/19 14:30 01/24/19 15:30 Pulse Rate 58 L 68 71 Respiratory Rate 16 16 17 Blood Pressure Blood Pressure [Left Arm] 158/64 H 146/68 H 136/60 Pulse Oximetry 100 99 100 01/24/19 16:57 01/24/19 17:58 01/24/19 18:39 Pulse Rate 90 80 78 Respiratory Rate 17 17 16 Blood Pressure 150/72 H Blood Pressure [Left Arm] 156/83 H 148/68 H Pulse Oximetry 100 98 97 MDM - Male Genitourinary <BRANDON Bueno- - Last Filed: 01/24/19 20:18> Lab Data Result diagrams: 01/24/19 14:25 01/24/19 14:25 Labs: Lab Results 01/24/19 01/24/19 01/24/19 Range/Units 14:25 14:25 14:25 WBC 8.2 (4.5-11.0) X10^3/uL RBC 5.01 (4.5-5.9) X10^6/uL Hgb 16.2 (13.5-17.5) g/dL Hct 46.4 (41-53) % MCV 92.8 (80-100) fL MCH 32.4 (26-34) PG MCHC 34.9 (30-36) % RDW 14.2 (11.6-14.8) % Plt Count 153 (150-400) X10^3/uL Neut % (Auto) 77.0 H (50-75) % Lymph % (Auto) 11.5 L (25-40) % [place] % (Auto) 9.8 (3-14) % Eos % (Auto) 1.3 L (2-4) % Baso % (Auto) 0.4 (0-2) % Neut # (Auto) 6300 (0873-6788) /uL Lymph # (Auto) 900 L (9759-4957) /uL [place] # (Auto) 800 (0-900) /uL Eos # (Auto) 100 (0-450) /uL Baso # (Auto) 0 (0-100) /uL Sodium 133 L (137-145) mmol/L Potassium 3.8 (3.4-5.1) mmol/L Chloride 93 L (98-107) mmol/L Carbon Dioxide 27 (22-32) mmol/L BUN 34 H (9-20) mg/dL Creatinine 1.50 H (0.66-1.25) mg/dL Estimated GFR 45.1 L (>60) mL/min BUN/Creatinine Ratio 22.7 H (6-22) Glucose 106 (80-110) mg/dL Calcium 10.4 H (8.4-10.2) mg/dL Total Bilirubin 0.6 (0.2-1.3) mg/dL AST 36 (17-59) IU/L ALT 25 (21-72) IU/L Alkaline Phosphatase 65 (38-126) U/L Total Protein 8.4 H (6.3-8.2) g/dL Albumin 4.8 (3.5-5.0) g/dL Globulin 3.6 (1.7-4.1) g/dL Albumin/Globulin Ratio 1.3 (1.0-2.8) Amylase 121 H (30-110) U/L Lipase 222 (23-300) U/L Procalcitonin < 0.05 (<0.5) ng/mL Urine Color Urine Appearance Urine pH (4.5-8.0) Ur Specific [place] (1.000-1.035) Urine Protein (Negative) Urine Glucose (UA) (Negative) g/dL Urine Ketones (NEGATIVE) Urine Occult Blood (Negative) Urine Nitrate (Negative) Urine Bilirubin (NEGATIVE) Urine Urobilinogen (0.2) E.U./dL Ur Leukocyte Esterase (NEGATIVE) Urine RBC (0-5/HPF) Urine WBC (0-5/HPF) Urine Bacteria (None) Ur Culture Indicated? 01/24/19 Range/Units 14:25 WBC (4.5-11.0) X10^3/uL RBC (4.5-5.9) X10^6/uL Hgb (13.5-17.5) g/dL Hct (41-53) % MCV (80-100) fL MCH (26-34) PG MCHC (30-36) % RDW (11.6-14.8) % Plt Count (150-400) X10^3/uL Neut % (Auto) (50-75) % Lymph % (Auto) (25-40) % [place] % (Auto) (3-14) % Eos % (Auto) (2-4) % Baso % (Auto) (0-2) % Neut # (Auto) (4803-1371) /uL Lymph # (Auto) (1193-0084) /uL [place] # (Auto) (0-900) /uL Eos # (Auto) (0-450) /uL Baso # (Auto) (0-100) /uL Sodium (137-145) mmol/L Potassium (3.4-5.1) mmol/L Chloride (98-107) mmol/L Carbon Dioxide (22-32) mmol/L BUN (9-20) mg/dL Creatinine (0.66-1.25) mg/dL Estimated GFR (>60) mL/min BUN/Creatinine Ratio (6-22) Glucose (80-110) mg/dL Calcium (8.4-10.2) mg/dL Total Bilirubin (0.2-1.3) mg/dL AST (17-59) IU/L ALT (21-72) IU/L Alkaline Phosphatase (38-126) U/L Total Protein (6.3-8.2) g/dL Albumin (3.5-5.0) g/dL Globulin (1.7-4.1) g/dL Albumin/Globulin Ratio (1.0-2.8) Amylase (30-110) U/L Lipase (23-300) U/L Procalcitonin (<0.5) ng/mL Urine Color Yellow Urine Appearance Clear Urine pH 6.0 (4.5-8.0) Ur Specific [place] <=1.005 (1.000-1.035) Urine Protein Negative (Negative) Urine Glucose (UA) Negative (Negative) g/dL Urine Ketones Negative (NEGATIVE) Urine Occult Blood Trace-intact (Negative) Urine Nitrate Negative (Negative) Urine Bilirubin Negative (NEGATIVE) Urine Urobilinogen 0.2 (0.2) E.U./dL Ur Leukocyte Esterase Trace H (NEGATIVE) Urine RBC None seen (0-5/HPF) Urine WBC 0-1/hpf (0-5/HPF) Urine Bacteria None seen (None) Ur Culture Indicated? Cult not indicated Imaging Data Abdominal CT: Radiologist's impression: [address] [address] [address] Scan Report Signed Patient: Duy Em [facility]#: [id number] : 1940Acct:[id number] Age/Sex: 78 / MDate of Service: 01/24/19 Loc: ED Accession Number: [id number] Procedure: CT abdomen pelvis w con Ordering Provider: Vivian Mckeon THERMIT WELDING MACHINE OPERATOR-BC PROCEDURE: CT ABDOMEN PELVIS W CON INDICATIONS: abd pain TECHNIQUE: After the administration of oral and intravenous contrast, 5 mm thick sections acquired from the diaphragms to the symphysis. 5 mm thick coronal and sagittal reformats were performed. For radiation dose reduction, the following was used: automated exposure control, adjustment of mA and/or kV according to patient size. COMPARISON: [facility], CT, ABDOMEN/PELVIS WITHOUT CONTRAS, 06/01/2016, 19:27. FINDINGS: Image quality: Diagnostic. ABDOMEN: Lung bases: Minimal scar versus atelectasis appears to be present within the posterior right costophrenic angle. There may be areas of centrilobular emphysema within the lung bases. Heart size is normal. Solid organs: The liver is noted be slightly hypodense when compared to the spleen. No definite liver lesions are appreciated. Small gallstones are present within the dependent aspect of the gallbladder. There is no intrahepatic or extrahepatic biliary dilatation. The adrenals, pancreas, and spleen are within normal limits. Both kidneys are normal in size and appear to contain bilateral renal cysts. There is no definite hydronephrosis. An extrarenal pelvis on the right appears to be present. Mild prominence of both ureters is present. A diverting right lower quadrant ureteroileostomy is identified with slight dilatation of this structure, which is similar to the previous exam. Peritoneum and bowel: Stomach is unremarkable. The small bowel loops are nondilated. Moderate residual stool is identified throughout the colon, which is more pronounced within the proximal colon. The appendix is well-visualized and normal. Extensive colonic diverticulosis is evident without surrounding inflammation to suggest diverticulitis. No free fluid, loculated fluid collection or free air is evident. Postoperative changes at the rectosigmoid junction are present without an adjacent fluid collection. Nodes and vessels: No retroperitoneal or mesenteric adenopathy. Aorta and inferior vena cava are normal in caliber. Bones: Post surgical changes of the lumbosacral spine are evident related to an L4-S1 lumbar fusion. Moderate multilevel degenerative changes of the lumbar spine are present. No acute fracture or suspicious osseous lesion is evident. PELVIS: Genitourinary: The prostate and the urinary bladder have been surgically removed. Miscellaneous: No inguinal hernias or adenopathy. No free fluid or loculated fluid collection is appreciated. Bones: No suspicious bony lesions. No acute pelvic fractures are identified. IMPRESSION: 1. No acute abnormality within the abdomen or pelvis. 2. 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 Mild hydroureter is similar to the previous exam. There is no definitive hydronephrosis. 3. Colonic diverticulosis without diverticulitis. 4. Possible constipation. No bowel obstruction. 5. Cholelithiasis. 6. Questionable mild hepatic steatosis. Dictated by: Dylan Marley M.D. on 01/24/2019 at 15:48 Approved by: Dylan Marley M.D. on 01/24/2019 at 15:54 Scrotal ultrasound: Radiologist's impression: Duy Em 78 M 1940 [place] [address] Ultrasound Report Signed Patient: Duy Em DMR#: [id number] : 1940Acct:[id number] Age/Sex: 78 / MDate of Service: 01/24/19 Loc: ED Accession Number: [id number] Procedure: US scrotum Ordering Provider: Vivian Mckeon-BC PROCEDURE: US SCROTUM INDICATIONS: TESTICLE PAIN TECHNIQUE: Real-time scanning was performed of the scrotum and testicles, with image documentation. Color and pulse Doppler interrogation was performed of both testicles. COMPARISON: [facility], , US SCROTUM, 04/14/2018, 11:49. Former[facility], [place], TESTICLE IMAGING, 03/30/2016, 13:28. FINDINGS: Right: Testicle is normal in size at 4.1 x 2.3 x 2.1 cm, and homogenous in echotexture. Epididymis is normal in overall size and morphology. A moderate-sized right- sided hydrocele with internal low-level echoes is similar to the prior examination and may contain a single septation. There appears to be a small varicocele. Overlying scrotal skin is normal in thickness. Left: Testicle is normal in size at 3.6 x 2.6 x 1.8 cm, and homogeneous in echotexture. Epididymis is normal in overall size and morphology. No hydrocele or varicoceles. Overlying scrotal skin is normal in thickness. There is mild prominence of the rete testes. A few scattered microcalcifications within the left testicle is present without findings consistent with microlithiasis. Doppler: Color and pulse Doppler demonstrate normal and symmetric arterial flow in both testicles. Other: Sonographic imaging was also performed at the site of the patient's area of concern, which is noted to be located within the left groin region. Within this region, there are small lymph nodes identified measuring up to 8 mm in short axis. IMPRESSION: 1. No evidence of testicular torsion, testicular mass, or epididymal orchitis. 2. A small lymph node is evident at the site of the patient's area of concern within the left groin. 3. Complex right-sided hydrocele is similar to the prior examination and of doubtful clinical significance. The possibility of superimposed infection should be excluded clinically. Dictated by: Dylan Marley M.D. on 01/24/2019 at 13:53 Approved by: Dylan Marley M.D. on 01/24/2019 at 13:57 MDM Narrative Medical decision making narrative: The patient is a 78-year-old male who presents with a chief complaint of chronic left-sided pain, recently worse. He does have an acute abdominal exam was significant guarding to exam so I ordered a CT abdomen pelvis. No acute etiology found on CT. I also had a scrotal ultrasound done given his complaints, which came back with no acute findings. I did discuss is consistent renal cysts, noted large lymph node left inguinal area. The patient has a negative procalcitonin, no leukocytosis, overall benign labs. The patient requests to stay at the emergency department several times, requesting admission stating he is ?hospital addict to hospital staff. 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 Discussed come back to emergency department for any acute concerns such as chest pain shortness of breath. Encouraged prompt follow-up. A courage the patient to reschedule his previous MRI. Patient is on have no questions or concerns upon discharge. <Vivianmillie Ochoa, DO - Last Filed: 02/05/19 03:12> Lab Data Labs: Lab Results 01/24/19 01/24/19 01/24/19 Range/Units 14:25 14:25 14:25 WBC 8.2 (4.5-11.0) X10^3/uL RBC 5.01 (4.5-5.9) X10^6/uL Hgb 16.2 (13.5-17.5) g/dL Hct 46.4 (41-53) % MCV 92.8 (80-100) fL MCH 32.4 (26-34) PG MCHC 34.9 (30-36) % RDW 14.2 (11.6-14.8) % Plt Count 153 (150-400) X10^3/uL Neut % (Auto) 77.0 H (50-75) % Lymph % (Auto) 11.5 L (25-40) % [place] % (Auto) 9.8 (3-14) % Eos % (Auto) 1.3 L (2-4) % Baso % (Auto) 0.4 (0-2) % Neut # (Auto) 6300 (0161-7721) /uL Lymph # (Auto) 900 L (4278-3184) /uL [place] # (Auto) 800 (0-900) /uL Eos # (Auto) 100 (0-450) /uL Baso # (Auto) 0 (0-100) /uL Sodium 133 L (137-145) mmol/L Potassium 3.8 (3.4-5.1) mmol/L Chloride 93 L (98-107) mmol/L Carbon Dioxide 27 (22-32) mmol/L BUN 34 H (9-20) mg/dL Creatinine 1.50 H (0.66-1.25) mg/dL Estimated GFR 45.1 L (>60) mL/min BUN/Creatinine Ratio 22.7 H (6-22) Glucose 106 (80-110) mg/dL Calcium 10.4 H (8.4-10.2) mg/dL Total Bilirubin 0.6 (0.2-1.3) mg/dL AST 36 (17-59) IU/L ALT 25 (21-72) IU/L Alkaline Phosphatase 65 (38-126) U/L Total Protein 8.4 H (6.3-8.2) g/dL Albumin 4.8 (3.5-5.0) g/dL Globulin 3.6 (1.7-4.1) g/dL Albumin/Globulin Ratio 1.3 (1.0-2.8) Amylase 121 H (30-110) U/L Lipase 222 (23-300) U/L Procalcitonin < 0.05 (<0.5) ng/mL Urine Color Urine Appearance Urine pH (4.5-8.0) Ur Specific [place] (1.000-1.035) Urine Protein (Negative) Urine Glucose (UA) (Negative) g/dL Urine Ketones (NEGATIVE) Urine Occult Blood (Negative) Urine Nitrate (Negative) Urine Bilirubin (NEGATIVE) Urine Urobilinogen (0.2) E.U./dL Ur Leukocyte Esterase (NEGATIVE) Urine RBC (0-5/HPF) Urine WBC (0-5/HPF) Urine Bacteria (None) Ur Culture Indicated? 01/24/19 Range/Units 14:25 WBC (4.5-11.0) X10^3/uL RBC (4.5-5.9) X10^6/uL Hgb (13.5-17.5) g/dL Hct (41-53) % MCV (80-100) fL MCH (26-34) PG MCHC (30-36) % RDW (11.6-14.8) % Plt Count (150-400) X10^3/uL Neut % (Auto) (50-75) % Lymph % (Auto) (25-40) % [place] % (Auto) (3-14) % Eos % (Auto) (2-4) % Baso % (Auto) (0-2) % Neut # (Auto) (9568-1370) /uL Lymph # (Auto) (0632-5169) /uL [place] # (Auto) (0-900) /uL Eos # (Auto) (0-450) /uL Baso # (Auto) (0-100) /uL Sodium (137-145) mmol/L Potassium (3.4-5.1) mmol/L Chloride (98-107) mmol/L Carbon Dioxide (22-32) mmol/L BUN (9-20) mg/dL Creatinine (0.66-1.25) mg/dL Estimated GFR (>60) mL/min BUN/Creatinine Ratio (6-22) Glucose (80-110) mg/dL Calcium (8.4-10.2) mg/dL Total Bilirubin (0.2-1.3) mg/dL AST (17-59) IU/L ALT (21-72) IU/L Alkaline Phosphatase (38-126) U/L Total Protein (6.3-8.2) g/dL Albumin (3.5-5.0) g/dL Globulin (1.7-4.1) g/dL Albumin/Globulin Ratio (1.0-2.8) Amylase (30-110) U/L Lipase (23-300) U/L Procalcitonin (<0.5) ng/mL Urine Color Yellow Urine Appearance Clear Urine pH 6.0 (4.5-8.0) Ur Specific [place] <=1.005 (1.000-1.035) Urine Protein Negative (Negative) Urine Glucose (UA) Negative (Negative) g/dL Urine Ketones Negative (NEGATIVE) Urine Occult Blood Trace-intact (Negative) Urine Nitrate Negative (Negative) Urine Bilirubin Negative (NEGATIVE) Urine Urobilinogen 0.2 (0.2) E.U./dL Ur Leukocyte Esterase Trace H (NEGATIVE) Urine RBC None seen (0-5/HPF) Urine WBC 0-1/hpf (0-5/HPF) Urine Bacteria None seen (None) Ur Culture Indicated? Cult not indicated Discharge Plan Departure Patient Disposition: Home Clinical Impression: Renal cyst, Lymphadenopathy Chronic left-sided back pain Qualifiers: Back pain location: back pain in unspecified location Qualified Code(s): M54.9 - Dorsalgia, unspecified Chronic pain Qualifiers: Chronic pain type: other chronic pain Qualified Code(s): G89.29 - Other chronic pain Abdominal pain Qualifiers: Abdominal location: generalized Qualified Code(s): R10.84 - Generalized abdominal pain Discharge Date/Time: 01/24/19 18:41 Instructions: DI for Abdominal Pain-Adult, DI for Chronic Pain -- Adult, DI for Lymphadenopathy Activity Restrictions/Additional Instructions: As discussed, we did a abdominal CT, scrotal ultrasound, lab work and everything came back well. Your urinalysis came back without signs of infection. Please come back to the emergency department for any acute concerns. I suggest following up with primary care provider as well as your pain management physician. As discussed you still have an inflamed lymph node in your groin as well as kidney cyst Prescriptions: No Action metoprolol succinate 100 MG tablet extended release 24 hr 100 mg PO QPM Qty: 0 RF: 0 primidone 50 mg tablet 50 mg PO DAILY RF: 0 hydrochlorothiazide 25 mg tablet 25 mg PO DAILY RF: 0 atorvastatin 20 mg tablet 20 mg PO QPM RF: 0 alprazolam 1 mg tablet 1 mg PO BEDTIME PRN (Reason: Insomnia) RF: 0 hydrocodone-acetaminophen 10-325 mg tablet 1 tab PO QAM RF: 0 fluticasone propionate 50 mcg/actuation spray,suspension 1 spray intranasal DAILY RF: 0 sennosides-docusate sodium [Senna with Docusate Sodium] 8.6-50 mg Tablet 1 tab PO BID RF: 0 naloxone 4 mg/actuation [place],Non-Aerosol 1 spray intranasal PRN PRN (Reason: decreased responsiveness) RF: 0 ondansetron 4 mg tablet,disintegrating 4 mg PO Q6H PRN (Reason: nausea and vomiting) Qty: 14 RF: 0 Referrals: Kyler Doty MD [Primary Care Provider] -
== END 2019-01-24 18:41 | disposition home or self-care (01) ==
PROVIDERS: Emergency Provider Nurse Practitioner Family; PCP Family Medicine
DX: N28.1 Cyst of kidney, acquired (principal); M54.9 Dorsalgia, unspecified; G89.29 Other chronic pain; R59.0 Localized enlarged lymph nodes
CPT/HCPCS: 36591; 74177; 76870; 80053; 81001; 82150; 83690; 84145; 85025; 96361; 96374; 99283; 99285; J2405; Q9967

== ENCOUNTER → 2019-01-27 11:14 | Outpatient (CLI) | payer MEDICARE, OTHER, SELFPAY ==
--- NOTE | 2019-01-27 | DI.MRI.S_ITS ---
PROCEDURE: MR LUMBAR SPINE WO/W CON INDICATIONS: Lumbago with sciatica, left side TECHNIQUE: Noncontrast sagittal T1 spin echo and T2 fast spin echo, sagittal STIR, axial T1 and T2 fast spin echo through the lumbar spine. In cases with scoliosis, additional coronal T2 fast spin echo may be performed. After the administration of contrast, sagittal and axial T1 spin echo with fat saturation through the lumbar spine. COMPARISON: [facility], MR, L-SPINE WITHOUT CONTRAST, 08/08/2015, 13:17. [facility], CT, L-SPINE WITHOUT CONTRAST, 05/31/2017, 11:15. [facility], CR, XR LUMBAR SPINE 2 OR 3 VIEWS, 10/12/2018, 15:35. [facility], CT, CT ABDOMEN PELVIS W CON, 01/24/2019, 16:18. FINDINGS: Image quality: Diagnostic, with note made of motion artifact. Alignment and curvature: There is normal bony alignment. Marrow: Marrow is of normal overall signal. No acute vertebral body compression fractures. No suspicious marrow enhancement. Spinal cord: Conus medullaris terminates at the L1 level. Visualized spinal cord demonstrates normal signal, without suspicious enhancement. Paraspinous soft tissues: No paravertebral masses or abnormal enhancement. Small bilateral renal cysts are seen, without enhancement observed. Postoperative changes are seen, bilateral pedicle screws at the L4, L5, and S1 levels. Vertical fixation rods are seen. Disc spacers are seen at L4-L5 and L5-S1. There is associated susceptibility artifact. There has been removal of portions of the posterior elements. T12-L1: Bridging endplate osteophytes are seen. The disc height is well-preserved. Loss of disc signal is seen at this level. Endplate irregularity is seen. Mild disc bulge can be seen. No significant neural foraminal or central canal narrowing can be seen. L1-L2: Mild loss of disc height is seen. Loss of disc signal is seen. Bridging endplate osteophytes are seen. Disc bulge is seen, which is eccentric to the right. There is moderate bilateral neural foraminal narrowing seen, right worse than left. Stable from the prior study. L2-L3: The disc height is well-preserved. Loss of disc signal is seen at this level. At least moderate disc bulge is seen, which is eccentric to the right side. Mild facet joint hypertrophy is seen. Bridging endplate osteophytes are seen. There is at least moderate bilateral neural foraminal narrowing seen, left worse than right. These imaging findings have progressed compared to the prior study. L3-L4: The disc height is well-preserved. Loss of disc signal is seen at this level. Bridging endplate osteophytes are seen. Moderate to prominent disc bulge is seen at this level. Mild to moderate facet hypertrophy is seen. There is moderate to severe bilateral neural foraminal narrowing seen worse than right. There is a degree of compression seen upon the exiting nerve roots. When comparison is made with the prior examination, these findings are similar. L4-L5: Postoperative changes are seen at this level. Mild loss of disc height is seen. Loss of disc signal is seen. Moderate disc bulge is seen, which is eccentric to the right side. There is moderate to severe right-sided and at least moderate left-sided neural foraminal narrowing seen. There is a degree of compression seen upon the exiting nerve roots. The central canal is widely patent. This level is improved compared to the preoperative MRI. L5-S1: There are postoperative changes seen at this level. Mild loss of disc height is seen. Loss of disc signal is seen. At least moderate facet hypertrophy is seen. There is moderate right-sided and moderate to severe left-sided neural foraminal narrowing seen. There is a degree of impingement upon the exiting left S1 nerve root. The central canal is widely patent. This level is improved compared to the preoperative MRI. IMPRESSION: L4-S1 postoperative change, with improvement in the degrees of narrowing compared to the preoperative imaging. 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 Dictated by: Christopher Cordon M.D. on 01/27/2019 at 13:25 Approved by: Christopher Cordon M.D. on 01/27/2019 at 13:32
--- NOTE | 2019-02-07 12:40 | ONC.MSW ---
Description: Initial Navigation T/C Activity: Called pt to introduce myself as the APPLICATIONS ENGINEER/STEPH, confirmed that we have received his referral and assessed immediate needs. Pt states that he is busy with his 's medical needs the entire month of February, and wishes to not be scheduled until March. He did have preliminary work-up for the enlarged lymph node, which is believed to be benign, however he is being referred for further evaluation from Oncology, and need's to also be scheduled at [facility] for biopsy. He has additional records at [facility] that will need to be obtained. Forwarding to scheduling for next steps.
== END ==
PROVIDERS: PCP Family Medicine; Referring Provider Anesthesiology Pain Medicine; Visit Provider Psychiatry & Neurology Neurology
DX: M54.42 Lumbago with sciatica, left side (principal); M47.816 Spondylosis without myelopathy or radiculopathy, lumbar region
CPT/HCPCS: 72158; A9579